=== PATIENT | female | born 1950 | race Caucasian/White ===

== ENCOUNTER → 2017-01-29 20:18 | Outpatient (CLI) | payer MEDICARE ==
[2014-05-30 11:29] VITALS: BMI 44.1
[~2017-01-29 20:18] MED LIST: CLOBETASOL PROP60 GM; COUMADIN5 MG PO; COZAAR50 MG PO; DYAZIDE 37.5/251 CAP PO; LEVOTHROID75 MCG PO; LOPRESSOR25 MG PO; MOBIC7.5 MG PO; OSTEO BIFLEX PO; PERCOCET 10/3251 TA1 PO; PRILOSEC20 MG PO; TOPROL XL25 MG PO
== END | disposition home or self-care (01) ==
LOC: D.LABREF 20:18
DX: M19.012 Primary osteoarthritis, left shoulder (principal)

== ENCOUNTER 2017-03-17 05:25 | Inpatient (IN) | payer MEDICARE, OTHER ==
[2017-03-13 10:33] LABS: BASOPHILS 0.4 % (0-2); EOSINOPHILS 1.9 % (0-7); HEMATOCRIT 41.2 % (36.0-48.0); HEMOGLOBIN 13.5 g/dL (12-16); LYMPHOCYTES 39.1 % (15-50); MCH 30.1 pg (26.0-34.0); MCHC 32.8 g/dL (31.0-37.0); MEAN PLATELET VOLUME 10.4 fL (7.4-10.4); MONOCYTES 8.3 % (2-11); NEUTROPHILS 50.3 % (40-80); PLATELET COUNT 224 10x3/uL (130-400); RBC 4.48 10x6/uL (4.00-5.40); RDW 13.4 % (11.5-14.5); WBC 4.7 10x3/uL (4.8-10.8)
[2017-03-13 10:42] LABS: ANION GAP 13.2 mmol/L (8-16); CALCIUM 9.3 mg/dL (8.5-10.1); CARBON DIOXIDE 26.6 mmol/L (21.0-32.0); CREATININE - SERUM 1.1 mg/dL (0.6-1.3); POTASSIUM - SERUM 3.8 mmol/L (3.5-5.1)
[2017-03-13 10:48] LABS: APTT 29.7 SECONDS (22.8-39.4); INR 0.99 (0.85-1.17); PROTIME 12.9 SECONDS (11.6-15.0)
[2017-03-13 11:13] LABS: APPEARANCE CLEAR (CLEAR); BILIRUBIN NEGATIVE (NEGATIVE); COLOR YELLOW (YELLOW); GLUCOSE NEGATIVE (NEGATIVE); KETONE NEGATIVE (NEGATIVE); LEUKOCYTE ESTERASE NEGATIVE (NEGATIVE); NITRITE NEGATIVE (NEGATIVE); PROTEIN NEGATIVE (NEGATIVE); UROBILINOGEN NORMAL (NORMAL)
[~2017-03-17] VITALS: Ht 165.1 cm; Wt 109.5 kg
[2017-03-17] VITALS (9 sets, daily range): BP systolic 100–129; BP diastolic 53–64; Ht 165.1 cm; Wt 109.5 kg
--- NOTE | ~2017-03-17 | OP ---
PATIENT NAME: TERI CARDENAS MEDICAL RECORD: [id number] :48 LOCATION:[id number] ADMISSION DATE:03/17/17 SURGEON: LUCIO DAS MD DATE OF OPERATION: 03/17/2017 Orthopedic Surgery Operative Note PREOPERATIVE DIAGNOSIS: Degenerative arthritis of the left shoulder. POSTOPERATIVE DIAGNOSIS: Degenerative arthritis of the left shoulder. PROCEDURE: Left total shoulder arthroplasty. SURGEON: Lucio Das MD ANESTHESIA: General. INTRAOPERATIVE COMPLICATIONS: None. SUMMARY OF PATHOLOGIC FINDINGS: The patient has extensive osteoarthritis of the left shoulder consistent with the preoperative radiographs and other imaging. IMPLANTS USED: Arthrex total shoulder arthroplasty, size 9 humeral stem with a 46 x 19 humeral head. OPERATIVE SUMMARY IN DETAIL: After obtaining the appropriate preoperative orthopedic surgery consent as well as anesthetic consultation, evaluation and clearance, the patient was brought to the operating room and placed on the operating table in supine position. After adequate general laryngeal mask was administered, the patient was placed in the beach chair position. All pressure points were well padded. She was held firmly to the operating table using the vacuum pack suction system. Left upper extremity and shoulder were prepped and draped in a routine sterile fashion. The arm was held in the Arthrex Trimano device. Deltopectoral incision was taken down. The cephalic vein was identified and gently protected during the case. Clavipectoral fascia was incised. Conjoined tendon was gently retracted medially and the deltoid was retracted laterally using a brown retractor. Subscapularis was removed. Biceps was incised and saved for later biceps tenodesis. The humeral head was then dislocated into the incision where osteophytes were taken off anteriorly and inferiorly. Proximal humeral cut was made using the humeral cutting guide. At this point, the cup protector was then placed onto the cut surface and the glenoid was exposed. Circumferential labrectomy was followed by serial and sequential reaming for a size medium vault lock glenoid component. After irrigation, the vault lock was cemented into place with good fixation. The excess cement was removed before it was allowed to harden. After the cement had hardened, attention was returned to the proximal humerus. Serial and sequential reaming and broaching were done for a size 9 humeral stem. The size [address] with excellent fixation. The inferior and superior vault locking mechanism were engaged and the humeral head component was then tamped into place with the Issa taper. The shoulder was reduced and found to be appropriately stable in all planes. At this point, the subscapularis was reapproximated in transosseous fashion back to the lesser tuberosity along with biceps tenodesis using #2 Ethibond. Wound was again irrigated and closed with #1 Vicryl followed by 2-0 Vicryl and skin maria r. Sterile dressings were applied. The patient was awakened, taken to recovery room in stable condition. All final needle and OPERATIVE REPORT [id number] TERI CARDENAS sponge counts were correct. TRANSINT:[id number] Voice Confirmation ID: [id number] DOCUMENT ID: [id number] PIPPA GAITAN, LUCIO MORRIS CC: [id number] DICTATION DATE: 03/17/17925 TIMBER FELLER: 03/17/171818 ADM IN [facility] [address] [id number]
[~2017-03-17 05:25] MED LIST changes: +MULTIPLE VITAMI1 TA1 PO; +VITAMIN B-122500 MCG PO
--- NOTE | 2017-03-17 10:10 | NUR ---
RECEIVED TO ROOM 2208 FROM RECOVERY ROOM VIA BED. ORIENTED TO ROOM AND CALL LIGHT SYSTEM. CARE PLAN REVIEWED. INCENTIVE SPIROMETER GIVEN TO PATIENT AND EXPLAINED USE WITH RETURN DEMONSTRATION. SCDs HOOKED UP. O2 @ 2L PER NC. ICE AND SPLINT TO LEFT SHOULDER. VSS. CALL LIGHT IN REACH. DAUGHTER AT BEDSIDE. CALL LIGHT IN REACH. WILL CONTINUE WITH PLAN OF CARE.
--- NOTE | 2017-03-17 10:30 | NUR ---
STATES THERE IS NO PAIN IN HER SHOULDER BUT THERE IS A LOT OF PAIN IN HER ELNOW AND WRIST. NORCO PO ADMINISTERED. ALSO UBALDO CRACKERS AND APPLE JUICE GIVEN TO PATIENT. ALSO COFFEE GIVEN TO PATIENT PER HER REQUEST. QUESTIONED PATIENT ABOUT ALLERGY TO CAFFEINE BUT SHE STATED THAT SHE IS NOT ALLERGIC TO IT BUT IT DOES MAKE HER HEART RACE AT TIMES. STATES SHE DRINKS COFFEE EVERY DAY AND DOES FINE. ALSO STATED THAT CAFFEINE SHOULD BE REMOVED FROM HER ALLERGY LIST.
--- NOTE | 2017-03-17 11:46 | NUR ---
STATES PAIN HAS DECREASED TO A 1. DENIES NEEDS AT THIS TIME. CALL LIGHT IN REACH.
--- NOTE | 2017-03-17 13:26 | NUR ---
O2 SAT 96% ON 2L PER NC. DECREASED O2 TO 1.5L PER NC.
--- NOTE | 2017-03-17 14:10 | NUR ---
ANCEF 1 GM IVPB PER ORDER. CALL LIGHT IN REACH.
--- NOTE | 2017-03-17 16:40 | NUR ---
NO NEEDS VOICED AT THIS TIME. DENIES PAIN OR NEEDS.
--- NOTE | 2017-03-17 18:41 | NUR ---
NO CHANGES IN INITIAL ASSESSMENT. CALL LIGHT IN REACH. BED ALARM ON. SCDs TO BLE. WILL CONTINUE WITH PLAN OF CARE.
[2017-03-18] VITALS: BP 110/62
--- NOTE | 2017-03-18 02:55 | NUR ---
RESTING WITH EYES CLOSED, NO DISTRESS NOTED, FALL PRECAUTIONS IN PLACE, CL IN REACH
[2017-03-18 04:00] VITALS: BP 111/62
[2017-03-18 05:04] LABS: HEMATOCRIT 33.1 % (36.0-48.0); HEMOGLOBIN 10.8 g/dL (12-16); MCH 29.8 pg (26.0-34.0); MCHC 32.6 g/dL (31.0-37.0); MCV 91.4 fL (80.0-100.0); MEAN PLATELET VOLUME 10.5 fL (7.4-10.4); RBC 3.62 10x6/uL (4.00-5.40); RDW 13.3 % (11.5-14.5)
--- NOTE | 2017-03-18 07:20 | NUR ---
REPORT RECEIVED FROM WAXED BAG MACHINE OPERATOR NURSE. CALL LIGHT IN REACH.
--- NOTE | 2017-03-18 08:20 | NUR ---
ASSESSMENT COMPLETED. REFUSES SCDs. BED ALARM ON. CALL LIGHT IN REACH. WILL CONTINUE WITH PLAN OF CARE.
[2017-03-18] MEDS ORDERED: PERCOCET 10/3251 TA1 PO (08:49)
[2017-03-18 09:17] VITALS: BP 120/63
--- NOTE | 2017-03-18 10:52 | NUR ---
* Is the patient Alert and Oriented? Yes 0 * PCP [facility] 0 * Pharmacy [facility] 0 * Preadmission Environment Home with Family 0 * ADLs Independent 0 * Equipment None 0 * List name and contact numbers for known caregivers / representatives who currently or will assist patient after discharge: DAUGHTER- JESSIKA CARDENAS [phone] 0 * Community resources currently utilized None 0 * Additional services required to return to the preadmission environment? No 0 * Can the patient safely return to the preadmission environment? Yes 0 * Has this patient been hospitalized within the prior 30 days at any hospital? No 0 Grand Total: 0 Patient Name: TERI CARDENAS Admission Status: Elective Accout number: [id number] Admission Date: 03-17-2017 : 1950 Admission Diagnosis: Attending: CHANO Current LOS: 1 Anticipated DC Date: 03-18-2017 Planned Disposition: Home Primary Insurance: MEDICARE A & B Discharge Planning Comments: CM met with patient to assess discharge planning needs. Patient currently lives with her adult children. She denies any HH or CM needs. Patient is discharging home today and her daughter Jessika Cardenas will be the one to drive her home. PCP: [facility] in [facility] Jessika Cardenas (daughter) [phone] Telecommunication Operator: Bhavna Zelaya
--- NOTE | 2017-03-18 10:59 | NUR ---
SITTING IN CHAIR PER PT. NORCO PO WITH AM MEDS ADMINISTERED. RX FOR PERCOCET HANDED TO PATIENT. DC INSTRUCTIONS EXPLAINED AND PATIENT VERABLIZED UNDERSTANDING. GAUZE REMOVED FROM OVER DRSG. IV DC'D WITH TIP INTACT. WAITING ON RIDE. WILL ASK SOCIAL MEDIA MARKETING SPECIALIST TO ASSIST WITH DRSG.
--- NOTE | 2017-03-18 12:16 | NUR ---
PATIENT DISCHARGED TO HOME AMBULATORY WITH FAMILY. NEURO VASCULAR CHECKS WNL.
== END 2017-03-18 12:16 | disposition home or self-care (01) | DRG 483 ==
LOC: D.SDCHOLD 05:25 → D.MS 09:57
PROVIDERS: ADMIT Orthopaedic Surgery
PROC: 0RRK0JZ Replacement of Left Shoulder Joint with Synthetic Substitute, Open Approach (ICD-10-PCS; principal; 2017-03-17 07:30)
DX: M19.012 Primary osteoarthritis, left shoulder (principal); M25.712 Osteophyte, left shoulder